=== PATIENT | male | born 1985 | race Caucasian/White ===

== ENCOUNTER 2016-07-14 18:56 | Emergency (ER) | payer OTHER ==
[2016-07-14 19:09] VITALS: BP 156/88; PULSE 90; RESP 16; TEMP 98
[2016-07-14] MEDS ORDERED: levETIRAcetam 500 MG TAB PO STA ×3 (19:17→19:33)
--- NOTE | 2016-07-14 19:29 | ED ---
General Adult HPI - General Chief complaint: Recheck/Abnormal Lab/Rx Stated complaint: Med refill Time Seen by Provider: 07/14/16 19:09 Source: patient, RN notes reviewed Mode of arrival: ambulatory Limitations: no limitations - History of Present Illness Initial comments: 31-year-old male presents to the ER with concerns of running out of his seizure medication. He states that he did try to go to the pharmacy and has had some extenuating circumstances not been able to refill the prescription on time. He states that he will be out of his medication for his night dose today and his daytime dose tomorrow as he does have to go to work and will be able to get to the pharmacy until after work. Patient is requesting medication to prevent seizure issue. Patient states he has been on Keppra for years and his last seizure was 9 years ago. He states that he is not symptomatic at this time and has no constitutional symptoms including fever, chills, blurry vision, headache , recent she seizure, abdominal pain, diarrhea. - Related Data Home Medications Medication Instructions Recorded Confirmed levETIRAcetam [Keppra] 500 mg PO BID 10/31/15 10/31/15 Allergies Allergy/AdvReac Type Severity Reaction Status Date / Time No Known Allergies Allergy Verified 07/14/16 19:05 Review of Systems ROS Statement: Those systems with pertinent positive or pertinent negative responses have been documented in the HPI. ROS Other: All systems not noted in ROS Statement are negative. Past Medical History Past Medical History: Seizure Disorder Additional Past Medical History / Comment(s): DVT, PE History of Any Multi-Drug Resistant Organisms: None Reported Past Surgical History: No Surgical Hx Reported Past Psychological History: No Psychological Hx Reported Smoking Status: Current some day smoker Past Alcohol Use History: Occasional Past Drug Use History: None Reported General Exam Limitations: no limitations General appearance: alert, in no apparent distress Head exam: Present: atraumatic, normocephalic Eye exam: Present: normal appearance, PERRL, EOMI Pupils: Present: normal accommodation Neck exam: Present: normal inspection Respiratory exam: Present: normal lung sounds bilaterally Cardiovascular Exam: Present: regular rate, normal rhythm Neurological exam: Present: alert, oriented X3, CN II-XII intact, normal gait Psychiatric exam: Present: normal affect, normal mood Course Vital Signs 07/14/16 19:06 Temperature 98 F Pulse Rate 90 Respiratory 16 Rate Blood Pressure 156/88 O2 Sat by Pulse 98 Oximetry Medical Decision Making - Medical Decision Making 31-year-old male presented to the ER after running out of his seizure medication. Counseled the patient on timely refills and he was receptive to this. He states that this will not be calm a recurrent problem. 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 500 mg were dispensed in the ER and an additional pill for his dose in the morning. He was offered a full prescription that he could fill at a pharmacy that was still open however he said he has not had good experiences with the pharmacy that is currently open. Patient was asymptomatic and his last seizure was 9 years ago. Patient was thankful for the help with his medication and prevention of seizure. To return to the ER with any new symptoms or concerns. Disposition Clinical Impression: Seizure disorder Disposition: HOME SELF-CARE Condition: Good Instructions: Normal Exam (ED) Additional Instructions: Return to the ER with any new or concerning symptoms. Encourage follow-up with primary care Referrals: Esteban Huang DO [Primary Care Provider] - 1-2 days Time of Disposition: 19:29
== END 2016-07-14 19:36 | disposition home or self-care (01) ==
LOC: EC 18:56
DX: G40.909 Epilepsy, unspecified, not intractable, without status epilepticus (principal); Z76.0 Encounter for issue of repeat prescription; F17.200 Nicotine dependence, unspecified, uncomplicated; Z79.899 Other long term (current) drug therapy
CPT/HCPCS: 99281

== ENCOUNTER 2019-01-19 18:21 | Observation (INO) | payer BC ==
[2019-01-19] MEDS ORDERED: SODIUM CHLORIDE 0.9% 1,000 ML IV STA (18:36)
[2019-01-19] MEDS ORDERED: MORPHINE SULFATE 4 MG/ML SYRINGE IV STA (18:36)
[2019-01-19 18:51] LABS: Basophils # (A) 0.4 k/uL (0-0.2); Basophils % (A) 2 %; Eosinophils # (A) 0.3 k/uL (0-0.7); Eosinophils % (A) 1 %; HCT 47.7 % (39.0-53.0); Lymphocytes # (A) 1.2 k/uL (1.0-4.8); Lymphocytes % (A) 6 %; MCH 31.3 pg (25.0-35.0); MCHC 33.6 g/dL (31.0-37.0); MCV 93.3 fL (80.0-100.0); Mean Platelet Volume 7.6; Monocytes % (A) 5 %; Neutrophils # (A) 17.7 k/uL (1.3-7.7); Neutrophils % (A) 85 %; Platelet Count 214 k/uL (150-450); RBC 5.11 m/uL (4.30-5.90); WBC 20.7 k/uL (3.8-10.6)
[2019-01-19 18:54] LABS: Appearance,Urine Clear (Clear); Bilirubin,Urine Negative (Negative); Blood,Urine Negative (Negative); Color,Urine Light Yellow; Glucose,Urine (UA) Negative (Negative); Ketones,Urine 1+ (Negative); Leukocyte Esterase,Urine Negative (Negative); Nitrite,Urine Negative (Negative); Protein,Urine Negative (Negative); Specific Gravity,Urine 1.005 (1.001-1.035); Urobilinogen,Urine <2.0 mg/dL (<2.0)
[2019-01-19] MEDS ORDERED: PIPERACILLIN-TAZOBACTAM 3.375 GM in SODIUM CHLORIDE 0.9% 100 ML IVPB STA (18:59)
[2019-01-19 19:07] LABS: ALT 47 U/L (21-72); AST 29 U/L (17-59); African American GFR (CKD) >90 (>60 ml/min/1.73 sqM); Albumin 4.6 g/dL (3.5-5.0); Alkaline Phosphatase 67 U/L (38-126); Anion Gap 9 mmol/L; Blood Urea Nitrogen 10 mg/dL (9-20); Calcium 9.8 mg/dL (8.4-10.2); Carbon Dioxide 30 mmol/L (22-30); Chloride 101 mmol/L (98-107); Glucose 112 mg/dL (74-99); Non-African American GFR(CKD) >90 (>60 ml/min/1.73 sqM); Potassium 4.1 mmol/L (3.5-5.1); Sodium 140 mmol/L (137-145); Total Bilirubin 0.9 mg/dL (0.2-1.3); Total Protein 7.7 g/dL (6.3-8.2)
--- NOTE | 2019-01-19 19:52 | ED ---
General Adult HPI - General Source: patient, RN notes reviewed, old records reviewed Mode of arrival: ambulatory Limitations: no limitations <Stephen Oliva - Last Filed: 01/20/19 17:59> <Dorcas Castro - Last Filed: 01/21/19 01:03> - General Chief complaint: Abdominal Pain Stated complaint: Abd pain Time Seen by Provider: 01/19/19 18:27 - History of Present Illness Initial comments: 34-year-old male patient passed no history for provoked PE following an ankle fracture number of years back presents to ED chief complaint of right lower quadrant abdominal pain for 2 days. Patient is not currently on any oral anticoagulation, completed 6 months of Coumadin. Patient reports that the abdominal pain started yesterday. Migrated down to his right lower quadrant. Patient reports nausea without emesis. Patient denies any previous abdominal surgeries. Denies any pain any other complaints. Denies other complaints. Systemic: Pt denies fatigue, fever/chills, rash. Pt denies weakness, night sweats, weight loss. Neuro: Pt denies headache, visual disturbances, syncope or pre-syncope. HEENT: Pt denies ocular discharge or irritation, otalgia, rhinorrhea, pharyngitis or notable lymphadenopathy. Cardiopulmonary: Pt denies chest pain, SOB, heart palpitations, dyspnea on exertion. Abdominal/GI: Pt denies /v/d. : Pt denies dysuria, burning w/ urination, frequency/urgency. Denies new onset urinary or bowel incontinence. MSK: Pt denies myalgia, loss of strength or function in extremities. Neuro: Pt denies new onset weakness, paresthesias. (Stephen Oliva) - Related Data Home Medications Medication Instructions Recorded Confirmed levETIRAcetam [Keppra] 500 mg PO BID 10/31/15 01/19/19 Allergies Allergy/AdvReac Type Severity Reaction Status Date / Time No Known Allergies Allergy Verified 01/19/19 20:05 Review of Systems ROS Other: All systems not noted in ROS Statement are negative. <Stephen Oliva - Last Filed: 01/20/19 17:59> ROS Other: All systems not noted in ROS Statement are negative. <Dorcas Castro - Last Filed: 01/21/19 01:03> ROS Statement: Those systems with pertinent positive or pertinent negative responses have been documented in the HPI. Past Medical History Past Medical History: Seizure Disorder Additional Past Medical History / Comment(s): DVT, PE History of Any Multi-Drug Resistant Organisms: None Reported Past Surgical History: No Surgical Hx Reported Past Psychological History: No Psychological Hx Reported Smoking Status: Former smoker Past Alcohol Use History: Rare Past Drug Use History: None Reported <Stephen Oliva - Last Filed: 01/20/19 17:59> - Past Family History Father Family Medical History: Coronary Artery Disease (CAD), Diabetes Mellitus Mother Additional Family Medical History / Comment(s): hypothyroid <Drocas Castro - Last Filed: 01/21/19 01:03> General Exam Limitations: no limitations <Stephen Oliva - Last Filed: 01/20/19 17:59> - General Exam Comments Initial Comments: Constitutional: NAD, AOX3, Pt has pleasant affect. HEENT: NC/AT, trachea midline, neck supple, no lymphadenopathy. Posterior pharynx non erythematous, without exudates. External ears appear normal, without discharge. Mucous membranes moist. Eyes PERRLA, EOM intact. There is no scleral icterus. No pallor noted. Cardiopulmonary: RRR, no murmurs, rubs or gallops, no JVD noted. Lungs CTAB in anterior and posterior villeda. No peripheral edema. Abdominal exam: Abdomen soft and non-distended. Abdomen tender to palpation right lower quadrant region. Guarding without rigidity. No other areas of abdominal tenderness.. Bowel sounds active in LLQ. No hepatosplenomegaly. No ecchymosis Neuro: CN II-XII grossly intact. No nuchal rigidity. No raccon eyes, no webb s ign, no hemotympanum. No cervical spinal tenderness. MSK: No posterior calf tenderness bilaterally, homans sign negative bilaterally. Posterior tibialis and radial pulse +2 bilaterally. Sensation intact in upper and lower extremities. Full active ROM in upper and lower extremities, 5/5 stregnth. (Stephen Oliva) Course Vital Signs 01/19/19 01/19/19 01/19/19 18:23 20:25 21:00 Temperature 98.1 F 102 F H Pulse Rate 97 86 87 Respiratory 18 18 18 Rate Blood Pressure 128/79 107/60 111/65 O2 Sat by Pulse 100 99 99 Oximetry Medical Decision Making - Lab Data Result diagrams: 01/19/19 18:43 01/19/19 18:43 <Stephen Oliva - Last Filed: 01/20/19 17:59> - Lab Data Result diagrams: 01/20/19 08:44 01/20/19 08:44 <Dorcas Castro - Last Filed: 01/21/19 01:03> - Medical Decision Making 34-year-old male patient presents to ED for chief complaint of right lower quadrant abdominal pain. Patient will signs are stable, afebrile. Physical exam displayed a lower quadrant pain with guarding. Abdomen investigations revealed a leukocytosis of 20. She has 1.0. Patient was initiated on Zosyn. Patient signed out to attending physician Dr. Castro pending CAT scan report. (Stephen Oliva) CAT scan read does demonstrate acute appendicitis. I discussed results with the patient. I called and discussed the case with Dr. Brooke who accepted admission. Patient is made nothing by mouth. Antiemetics, antibiotics and pain medications are ordered. Patient is awaiting a bed on the floor (Dorcas Castro) - Lab Data Lab Results 01/19/19 01/19/19 01/19/19 Range/Units 18:43 18:43 18:43 WBC 20.7 H (3.8-10.6) k/uL RBC 5.11 (4.30-5.90) m/uL Hgb 16.0 (13.0-17.5) gm/dL Hct 47.7 (39.0-53.0) % MCV 93.3 (80.0-100.0) fL MCH 31.3 (25.0-35.0) pg MCHC 33.6 (31.0-37.0) g/dL RDW 12.0 (11.5-15.5) % Plt Count 214 (150-450) k/uL Neutrophils % 85 % Lymphocytes % 6 % Monocytes % 5 % Eosinophils % 1 % Basophils % 2 % Neutrophils # 17.7 H (1.3-7.7) k/uL Lymphocytes # 1.2 (1.0-4.8) k/uL Monocytes # 1.0 (0-1.0) k/uL Eosinophils # 0.3 (0-0.7) k/uL Basophils # 0.4 H (0-0.2) k/uL Sodium 140 (137-145) mmol/L Potassium 4.1 (3.5-5.1) mmol/L Chloride 101 (98-107) mmol/L Carbon Dioxide 30 (22-30) mmol/L Anion Gap 9 mmol/L BUN 10 (9-20) mg/dL Creatinine 0.94 (0.66-1.25) mg/dL Est GFR (CKD-EPI)AfAm >90 (>60 ml/min/1.73 sqM) Est GFR (CKD-EPI)NonAf >90 (>60 ml/min/1.73 sqM) Glucose 112 H (74-99) mg/dL Plasma Lactic Acid Bipin 1.0 (0.7-2.0) mmol/L Calcium 9.8 (8.4-10.2) mg/dL Total Bilirubin 0.9 (0.2-1.3) mg/dL AST 29 (17-59) U/L ALT 47 (21-72) U/L Alkaline Phosphatase 67 (38-126) U/L Total Protein 7.7 (6.3-8.2) g/dL Albumin 4.6 (3.5-5.0) g/dL Lipase 36 (23-300) U/L Urine Color Urine Appearance (Clear) Urine pH (5.0-8.0) Ur Specific [place] (1.001-1.035) Urine Protein (Negative) Urine Glucose (UA) (Negative) Urine Ketones (Negative) Urine Blood (Negative) Urine Nitrite (Negative) Urine Bilirubin (Negative) Urine Urobilinogen (<2.0) mg/dL Ur Leukocyte Esterase (Negative) 01/19/19 Range/Units 18:43 WBC (3.8-10.6) k/uL RBC (4.30-5.90) m/uL Hgb (13.0-17.5) gm/dL Hct (39.0-53.0) % MCV (80.0-100.0) fL MCH (25.0-35.0) pg MCHC (31.0-37.0) g/dL RDW (11.5-15.5) % Plt Count (150-450) k/uL Neutrophils % % Lymphocytes % % Monocytes % % Eosinophils % % Basophils % % Neutrophils # (1.3-7.7) k/uL Lymphocytes # (1.0-4.8) k/uL Monocytes # (0-1.0) k/uL Eosinophils # (0-0.7) k/uL Basophils # (0-0.2) k/uL Sodium (137-145) mmol/L Potassium (3.5-5.1) mmol/L Chloride (98-107) mmol/L Carbon Dioxide (22-30) mmol/L Anion Gap mmol/L BUN (9-20) mg/dL Creatinine (0.66-1.25) mg/dL Est GFR (CKD-EPI)AfAm (>60 ml/min/1.73 sqM) Est GFR (CKD-EPI)NonAf (>60 ml/min/1.73 sqM) Glucose (74-99) mg/dL Plasma Lactic Acid Bipin (0.7-2.0) mmol/L Calcium (8.4-10.2) mg/dL Total Bilirubin (0.2-1.3) mg/dL AST (17-59) U/L ALT (21-72) U/L Alkaline Phosphatase (38-126) U/L Total Protein (6.3-8.2) g/dL Albumin (3.5-5.0) g/dL Lipase (23-300) U/L Urine Color Light Yellow Urine Appearance Clear (Clear) Urine pH 7.0 (5.0-8.0) Ur Specific [place] 1.005 (1.001-1.035) Urine Protein Negative (Negative) Urine Glucose (UA) Negative (Negative) Urine Ketones 1+ H (Negative) Urine Blood Negative (Negative) Urine Nitrite Negative (Negative) Urine Bilirubin Negative (Negative) Urine Urobilinogen <2.0 (<2.0) mg/dL Ur Leukocyte Esterase Negative (Negative) Disposition <Stephen Oliva - Last Filed: 01/20/19 17:59> Is patient prescribed a controlled substance at d/c from ED?: No Decision to Admit Reason: Admit from EC Decision Date: 01/19/19 Decision Time: 20:40 <Dorcas Castro - Last Filed: 01/21/19 01:03> Clinical Impression: Abdominal pain, Acute appendicitis Disposition: ADMITTED IP TO THIS [facility] Condition: Serious
--- NOTE | 2019-01-19 20:13 | CT ---
EXAMINATION TYPE: CT abdomen pelvis w con DATE OF EXAM: 01/19/2019 COMPARISON: None HISTORY: Right lower quadrant abdominal pain. CT DLP: 1055 mGycm Automated exposure control for dose reduction was used. TECHNIQUE: Helical acquisition of images was performed from the lung bases through the pelvis. CONTRAST: Performed without Oral Contrast and with IV Contrast, patient injected with 100ml mL of Iso yohana 300. FINDINGS: LUNG BASES: No significant abnormality is appreciated. LIVER/GB: No significant abnormality is appreciated. PANCREAS: No significant abnormality is seen. SPLEEN: No significant abnormality is seen. ADRENALS: No significant abnormality is seen. KIDNEYS: No significant abnormality is seen. PERITONEAL CAVITY: No pneumoperitoneum. No peritoneal fluid. RETROPERITONEAL ADENOPATHY: None visualized REPRODUCTIVE ORGANS: No significant abnormality is seen URINARY BLADDER: No significant abnormality is seen. PELVIC ADENOPATHY: None visualized. OSSEOUS STRUCTURES: No significant abnormality is seen. BOWEL: The appendix lies immediately anterior to the psoas, from the superior iliac crest level throu gh the sacral promontory level. The appendix is prominently distended to 12 mm and its margins are in distinct. The appendix contains a hyperechoic density distally, consistent with appendicolith. There is associated periappendiceal edematous reticulation. There are no focal fluid or gas collections. No other bowel findings. OTHER: No acute vascular findings. IMPRESSION: POSITIVE FOR NONCOMPLICATED APPENDICITIS.
[2019-01-19] MEDS ORDERED: ONDANSETRON 4 MG/2 ML VIAL IVP PRN ×2 (20:22→20:42)
[2019-01-19] MEDS: MORPHINE SULFATE 4 MG/ML SYRINGE IVP PRN (20:32)
[2019-01-19] MEDS: SODIUM CHLORIDE 0.9% 1,000 ML IV SCH (20:33)
[2019-01-19] MEDS ORDERED: IBUPROFEN 400 MG TAB PO PRN (20:42)
[2019-01-19] MEDS ORDERED: NALOXONE 0.4 MG/ML 1 ML VIAL IV PRN (20:42)
[2019-01-19] MEDS ORDERED: MORPHINE SULFATE 4 MG/ML SYRINGE IV PRN (20:42)
[2019-01-19] MEDS: levETIRAcetam 500 MG TAB PO SCH (21:43)
[2019-01-20] MEDS: PIPERACILLIN-TAZOBACTAM 3.375 GM in SODIUM CHLORIDE 0.9% 100 ML IVPB SCH ×4 (01:55→23:58)
[2019-01-20] MEDS: MORPHINE SULFATE 4 MG/ML SYRINGE IVP PRN ×2 (01:57→07:26)
[2019-01-20] MEDS: ACETAMINOPHEN TAB 325 MG TAB PO PRN ×2 (01:58→19:06)
[2019-01-20] MEDS: levETIRAcetam 500 MG TAB PO SCH ×2 (07:28→19:07)
[2019-01-20] MEDS: SODIUM CHLORIDE 0.9% 1,000 ML IV SCH ×2 (07:29→16:44)
[2019-01-20] MEDS: HEPARIN SODIUM,PORCINE 5,000 UNIT/ML 1 ML VIAL SQ SCH ×4 (07:29→23:58)
[2019-01-20] MEDS ORDERED: MORPHINE SULFATE 4 MG/ML SYRINGE IV PRN (08:22)
[2019-01-20] MEDS: PANTOPRAZOLE 40 MG/10 ML VIAL IVP SCH (08:22)
--- NOTE | 2019-01-20 08:27 | P.GSHP ---
History of Present Illness H&P Date: 01/20/19 Chief Complaint: abdominal pain CHIEF COMPLAINT: Abdominal pain HISTORY OF PRESENT ILLNESS: 34-year-old male who presented to the emergency room with chief complaint of abdominal pain. Patient reports right lower quadrant abdominal pain that woke him up from a sleep two nights ago. He reports nausea and vomiting at home. No emesis since coming to the hospital. Patient reports fever as well. He appears uncomfortable this morning. He is receiving morphine for pain which he reports is helping his pain but not lasting very long. He reports intolerance to Dilaudid in the past. PAST MEDICAL HISTORY: See list. PAST SURGICAL HISTORY: See list. SOCIAL HISTORY: No illicit drug use. REVIEW OF SYSTEMS: CONSTITUTIONAL: Reports fever. HEENT: Denies blurred vision, vision changes, or eye pain. Denies hemoptysis CARDIOVASCULAR: Denies chest pain or pressure. RESPIRATORY: No shortness of breath. GASTROINTESTINAL: Refer to HPI for pertinent findings HEMATOLOGIC: Denies bleeding disorders. GENITOURINARY: Denies any blood in urine. SKIN: Denies pruitis. Denies rash. PHYSICAL EXAM: VITAL SIGNS: Reviewed. GENERAL: Well-developed in no acute distress, but appears uncomfortable and in pain. HEENT: No sclera icterus. Extraocular movements grossly intact. Moist buccal mucosa. Head is atraumatic, normocephalic. ABDOMEN: Soft. Nondistended. Tenderness with palpation to right lower quadrant. NEUROLOGIC: Alert and oriented. Cranial nerves II through XII grossly intact. LABORATORY DATA: WBC 20.7 hemoglobin 16.0. Platelet count 214. IMAGING: CT abdomen and pelvis: Positive for noncomplicated appendicitis ASSESSMENT: 1. Abdominal pain 2. Acute appendicitis 3. Sepsis, present on admission, patient presented with fever and leukocytosis PLAN: 1. Nothing by mouth. Continue IV fluids 2. Monitor WBC. Continue IV Zosyn 3. Pain control. Patient unable to tolerate Dilaudid. Will increase dose of Morphine to every 2 hours PRN. 4. Patient to undergo laparoscopic appendectomy today with Dr. Brooke Nurse practitioner note has been reviewed by physician. Signing provider agrees with the documented findings, assessment, and plan of care. Past Medical History Past Medical History: Seizure Disorder Additional Past Medical History / Comment(s): DVT, PE, last seizure 8 years ago History of Any Multi-Drug Resistant Organisms: None Reported Past Surgical History: No Surgical Hx Reported Past Psychological History: No Psychological Hx Reported Smoking Status: Former smoker Past Alcohol Use History: Rare Past Drug Use History: None Reported - Past Family History Father Family Medical History: Coronary Artery Disease (CAD), Diabetes Mellitus Mother Additional Family Medical History / Comment(s): hypothyroid Medications and Allergies Home Medications Medication Instructions Recorded Confirmed Type levETIRAcetam [Keppra] 500 mg PO BID 10/31/15 01/19/19 History Allergies Allergy/AdvReac Type Severity Reaction Status Date / Time No Known Allergies Allergy Verified 01/19/19 20:05 Surgical - Exam Vital Signs Temp Pulse Resp BP Pulse Ox 98.1 F 97 18 128/79 100 01/19/19 18:23 01/19/19 18:23 01/19/19 18:23 01/19/19 18:23 01/19/19 18:23 Results - Labs 01/19/19 18:43 01/19/19 18:43 Abnormal Lab Results - Last 24 Hours (Table) 01/19/19 01/19/19 01/19/19 Range/Units 18:43 18:43 18:43 WBC 20.7 H (3.8-10.6) k/uL Neutrophils # 17.7 H (1.3-7.7) k/uL Basophils # 0.4 H (0-0.2) k/uL Glucose 112 H (74-99) mg/dL Urine Ketones 1+ H (Negative) Diabetes panel 01/19/19 Range/Units 18:43 Sodium 140 (137-145) mmol/L Potassium 4.1 (3.5-5.1) mmol/L Chloride 101 (98-107) mmol/L Carbon Dioxide 30 (22-30) mmol/L BUN 10 (9-20) mg/dL Creatinine 0.94 (0.66-1.25) mg/dL Glucose 112 H (74-99) mg/dL Calcium 9.8 (8.4-10.2) mg/dL AST 29 (17-59) U/L ALT 47 (21-72) U/L Alkaline Phosphatase 67 (38-126) U/L Total Protein 7.7 (6.3-8.2) g/dL Albumin 4.6 (3.5-5.0) g/dL Calcium panel 01/19/19 Range/Units 18:43 Calcium 9.8 (8.4-10.2) mg/dL Albumin 4.6 (3.5-5.0) g/dL Pituitary panel 01/19/19 Range/Units 18:43 Sodium 140 (137-145) mmol/L Potassium 4.1 (3.5-5.1) mmol/L Chloride 101 (98-107) mmol/L Carbon Dioxide 30 (22-30) mmol/L BUN 10 (9-20) mg/dL Creatinine 0.94 (0.66-1.25) mg/dL Glucose 112 H (74-99) mg/dL Calcium 9.8 (8.4-10.2) mg/dL Adrenal panel 01/19/19 Range/Units 18:43 Sodium 140 (137-145) mmol/L Potassium 4.1 (3.5-5.1) mmol/L Chloride 101 (98-107) mmol/L Carbon Dioxide 30 (22-30) mmol/L BUN 10 (9-20) mg/dL Creatinine 0.94 (0.66-1.25) mg/dL Glucose 112 H (74-99) mg/dL Calcium 9.8 (8.4-10.2) mg/dL Total Bilirubin 0.9 (0.2-1.3) mg/dL AST 29 (17-59) U/L ALT 47 (21-72) U/L Alkaline Phosphatase 67 (38-126) U/L Total Protein 7.7 (6.3-8.2) g/dL Albumin 4.6 (3.5-5.0) g/dL
[2019-01-20] MEDS ORDERED: IV FLUID CONTINUATION 1,000 ML IV ONE (09:24)
[2019-01-20 09:53] LABS: Basophils # (A) 0.1 k/uL (0-0.2); Basophils % (A) 0 %; Eosinophils % (A) 0 %; HCT 44.4 % (39.0-53.0); HGB 14.7 gm/dL (13.0-17.5); Lymphocytes % (A) 5 %; MCH 31.1 pg (25.0-35.0); MCHC 33.1 g/dL (31.0-37.0); Mean Platelet Volume 7.4; Monocytes # (A) 0.8 k/uL (0-1.0); Monocytes % (A) 5 %; Neutrophils # (A) 15.7 k/uL (1.3-7.7); Neutrophils % (A) 89 %; Platelet Count 179 k/uL (150-450); RBC 4.72 m/uL (4.30-5.90); RDW 11.8 % (11.5-15.5); WBC 17.7 k/uL (3.8-10.6)
[2019-01-20] MEDS ORDERED: LACTATED RINGERS 1,000 ML IV ONE ×3 (09:54→11:48)
[2019-01-20] MEDS ORDERED: MIDAZOLAM 2 MG/2 ML VIAL IV ONE (10:19)
[2019-01-20 10:25] LABS: African American GFR (CKD) >90 (>60 ml/min/1.73 sqM); Anion Gap 11 mmol/L; Blood Urea Nitrogen 12 mg/dL (9-20); Calcium 8.9 mg/dL (8.4-10.2); Carbon Dioxide 25 mmol/L (22-30); Chloride 103 mmol/L (98-107); Glucose 92 mg/dL (74-99); Non-African American GFR(CKD) >90 (>60 ml/min/1.73 sqM); Sodium 139 mmol/L (137-145)
[2019-01-20] MEDS ORDERED: .MORPHINE SULFATE (INJ) 10 MG/ML SYRINGE ONE (11:02)
[2019-01-20] MEDS ORDERED: fentaNYL (PF) 50 MCG/ML 2 ML AMP ONE (11:02)
[2019-01-20] MEDS ORDERED: ALBUTEROL INHALER 60 PUFF/8 GM INHALER INHALATION ONE (11:02)
[2019-01-20] MEDS ORDERED: ROCURONIUM BROMIDE 10 MG/ML 10 ML VIAL IV ONE (11:02)
[2019-01-20] MEDS ORDERED: LIDOCAINE 1% INJ 10MG/ML (20 ML MDV) ONE (11:02)
[2019-01-20] MEDS ORDERED: MIDAZOLAM 2 MG/2 ML VIAL ONE (11:02)
[2019-01-20] MEDS ORDERED: PROPOFOL 10 MG/ML 20 ML VIAL IV ONE (11:02)
[2019-01-20] MEDS ORDERED: KETOROLAC 30 MG/ML 1 ML VIAL ONE (11:02)
[2019-01-20] MEDS ORDERED: GLYCOPYRROLATE 0.2 MG/ML 2 ML VIAL ONE (11:02)
[2019-01-20] MEDS ORDERED: NEOSTIGMINE 1 MG/ML 10 ML VIAL ONE (11:02)
[2019-01-20] MEDS ORDERED: BUPIVACAINE (PF) 0.25% 30 ML VIAL SQ ONE (11:26)
--- NOTE | 2019-01-20 11:57 | P.OP ---
Date of Procedure: 01/20/19 Preoperative Diagnosis: Acute appendicitis Postoperative Diagnosis: Acute appendicitis Procedure(s) Performed: Laparoscopic appendectomy Anesthesia: RAMIREZ Surgeon: Rohan Brooke Estimated Blood Loss (ml): 5 Pathology: other (Appendix) Condition: stable Disposition: PACU Description of Procedure: HarThe patient's placed on the operating table in the supine position. The patient received general anesthesia. The abdomen was prepped and draped in the usual sterile fashion. The skin was anesthetized 1% local Xylocaine at the trocar sites. Using an 11 blade the skin was incised at the umbilicus. The umbilicus was grasped with a Dubois clamp and then a Veress needle was placed into the peritoneal cavity. Position of the Veress needle was confirmed with positive drop test. After adequate insufflation a 5 mm trocar was placed into the peritoneal cavity. The abdomen was further insufflated. And then the laparoscope was placed in the peritoneal cavity. Next a 5 mm trocar was placed in the midline suprapubic position. And then a 10 mm trocar was placed in the midline epigastric position. The patient was rotated with the right side up and in Trendelenburg. The appendix was visualized. The appendix appeared to be inflamed. The appendix was grasped and then using the Harmonic scissors the mesoappendix was divided. A PDS Endoloop was then placed around the base of the appendix. And then the appendix was divided using Harmonic scissors. The appendix was placed into an Endo Catch and brought out through the 10 mm trocar site. The abdomen was irrigated. There is no bleeding seen. The trochars withdrawn. The skin was closed interrupted 3-0 Monocryl suture. Dermabond dressing was applied. Patient was sent to recovery room in stable condition.
--- NOTE | 2019-01-20 13:01 | P.PN ---
Progress Note - Text Unable to assess as the patient at this time as patient is in OR
--- NOTE | 2019-01-20 14:39 | P.CONS ---
History of Present Illness - Reason for Consult Sepsis, and antibiotic management - History of Present Illness 34-year-old male came in with complaints of right lower quadrant abdominal pain severe pain sharp episodes with nausea vomiting patient did have fever as well patient was started on Zosyn CAT scan did show appendicitis. Patient underwent the appendectomy with better pain control. Review of Systems REVIEW OF SYSTEMS: CONSTITUTIONAL: No fever, no malaise, no fatigue. HEENT: No recent visual problems or hearing problems. Denied any sore throat. CARDIOVASCULAR: No chest pain, orthopnea, PND, no palpitations, no syncope. PULMONARY: No shortness of breath, no cough, no hemoptysis. GASTROINTESTINAL: As mentioned in HPI NEUROLOGICAL: No headaches, no weakness, no numbness. HEMATOLOGICAL: Denies any bleeding or petechiae. GENITOURINARY: Denies any burning micturition, frequency, or urgency. MUSCULOSKELETAL/RHEUMATOLOGICAL: Denies any joint pain, swelling, or any muscle pain. ENDOCRINE: Denies any polyuria or polydipsia. The rest of the 14-point review of systems is negative. Past Medical History Past Medical History: Seizure Disorder Additional Past Medical History / Comment(s): DVT, PE, last seizure 8 years ago History of Any Multi-Drug Resistant Organisms: None Reported Past Surgical History: No Surgical Hx Reported Past Psychological History: No Psychological Hx Reported Smoking Status: Former smoker Past Alcohol Use History: Rare Past Drug Use History: None Reported - Past Family History Father Family Medical History: Coronary Artery Disease (CAD), Diabetes Mellitus Mother Additional Family Medical History / Comment(s): hypothyroid Medications and Allergies Home Medications Medication Instructions Recorded Confirmed Type levETIRAcetam [Keppra] 500 mg PO BID 10/31/15 01/19/19 History Allergies Allergy/AdvReac Type Severity Reaction Status Date / Time No Known Allergies Allergy Verified 01/19/19 20:05 Physical Exam Vitals: Vital Signs Temp Pulse Pulse Pulse Resp BP BP 01/20/19 13:15 99.1 F 83 16 110/66 01/20/19 12:30 90 18 116/57 01/20/19 12:16 88 18 122/59 01/20/19 12:01 88 18 121/58 01/20/19 11:55 99.8 F H 88 18 118/59 01/20/19 10:41 89 16 01/20/19 10:20 92 16 01/20/19 09:35 100.4 F H 96 16 123/58 01/20/19 08:00 16 01/20/19 05:32 98.9 F 84 20 116/67 01/20/19 01:58 99.1 F 01/19/19 21:36 99.1 F 78 20 130/64 01/19/19 21:00 87 18 111/65 01/19/19 20:25 102 F H 86 18 107/60 01/19/19 18:23 98.1 F 97 18 128/79 Pulse Ox 01/20/19 13:15 95 01/20/19 12:30 98 01/20/19 12:16 98 01/20/19 12:01 98 01/20/19 11:55 97 01/20/19 10:41 98 01/20/19 10:20 95 01/20/19 09:35 93 L 01/20/19 08:00 01/20/19 05:32 96 01/20/19 01:58 01/19/19 21:36 97 01/19/19 21:00 99 01/19/19 20:25 99 01/19/19 18:23 100 Intake and Output 01/19/19 01/20/19 01/20/19 22:59 06:59 14:59 Intake Total 2100 Output Total 105 Balance 1994 Intake: IV 2100 Output: Urine 100 Estimated Blood Loss 5 Other: Voiding Method Toilet Toilet # Voids 1 0 Weight 95.254 kg PHYSICAL EXAMINATION: GENERAL: The patient is alert and oriented x3, not in any acute distress. Well developed, well nourished. HEENT: Pupils are round and equally reacting to light. EOMI. No scleral icterus. No conjunctival pallor. Normocephalic, atraumatic. No pharyngeal erythema. No thyromegaly. CARDIOVASCULAR: S1 and S2 present. No murmurs, rubs, or gallops. PULMONARY: Chest is clear to auscultation, no wheezing or crackles. ABDOMEN: Examined the patient postoperatively surgical site is areas appear to be clean sluggish bowel sounds MUSCULOSKELETAL: No joint swelling or deformity. EXTREMITIES: No cyanosis, clubbing, or pedal edema. NEUROLOGICAL: Gross neurological examination did not reveal any focal deficits. SKIN: No rashes. Results CBC & Chem 7: 01/20/19 08:44 01/20/19 08:44 Labs: Abnormal Lab Results - Last 24 Hours (Table) 01/19/19 01/19/19 01/19/19 Range/Units 18:43 18:43 18:43 WBC 20.7 H (3.8-10.6) k/uL Neutrophils # 17.7 H (1.3-7.7) k/uL Basophils # 0.4 H (0-0.2) k/uL Glucose 112 H (74-99) mg/dL Urine Ketones 1+ H (Negative) 01/20/19 Range/Units 08:44 WBC 17.7 H (3.8-10.6) k/uL Neutrophils # 15.7 H (1.3-7.7) k/uL Basophils # (0-0.2) k/uL Glucose (74-99) mg/dL Urine Ketones (Negative) Assessment and Plan Plan: -Acute appendicitis status post surgery, patient is on antibiotics Zosyn which is appropriate and can be continued. Patient will be started on Toradol to avoid excess opiate analgesia -Leukocytosis due to acute appendicitis -Seizure disorder for which patient on Keppra was resumed -DVT prophylaxis per primary service
[2019-01-20] MEDS: KETOROLAC 30 MG/ML 1 ML VIAL IVP PRN (19:07)
[2019-01-21] MEDS: SODIUM CHLORIDE 0.9% 1,000 ML IV SCH ×3 (03:33→21:15)
[2019-01-21] MEDS: KETOROLAC 30 MG/ML 1 ML VIAL IVP PRN (05:30)
[2019-01-21] MEDS: HEPARIN SODIUM,PORCINE 5,000 UNIT/ML 1 ML VIAL SQ SCH ×2 (07:56→15:49)
[2019-01-21] MEDS: PIPERACILLIN-TAZOBACTAM 3.375 GM in SODIUM CHLORIDE 0.9% 100 ML IVPB SCH ×2 (07:56→15:49)
[2019-01-21] MEDS: levETIRAcetam 500 MG TAB PO SCH ×2 (07:56→21:15)
[2019-01-21] MEDS: PANTOPRAZOLE 40 MG/10 ML VIAL IVP SCH (07:56)
[2019-01-21 08:40] LABS: Basophils # (A) 0.1 k/uL (0-0.2); Basophils % (A) 0 %; Eosinophils % (A) 0 %; HCT 38.7 % (39.0-53.0); HGB 13.1 gm/dL (13.0-17.5); Lymphocytes # (A) 1.5 k/uL (1.0-4.8); Lymphocytes % (A) 9 %; MCH 32.3 pg (25.0-35.0); MCHC 33.9 g/dL (31.0-37.0); MCV 95.2 fL (80.0-100.0); Mean Platelet Volume 7.3; Monocytes # (A) 0.6 k/uL (0-1.0); Monocytes % (A) 4 %; Neutrophils # (A) 14.2 k/uL (1.3-7.7); Neutrophils % (A) 86 %; Platelet Count 152 k/uL (150-450); RBC 4.07 m/uL (4.30-5.90); RDW 11.9 % (11.5-15.5); WBC 16.6 k/uL (3.8-10.6)
[2019-01-21] MEDS: HYDROcodone/APAP 5-325MG 1 EACH TAB PO PRN ×2 (12:42→21:14)
--- NOTE | 2019-01-21 13:02 | P.PN ---
Subjective Progress Note Date: 01/21/19 CHIEF COMPLAINT: Abdominal pain HISTORY OF PRESENT ILLNESS: 34-year-old male who is status post laparoscopic appendectomy. Postop day #1. Patient examined at the bedside with Dr. Brooke. Patient reports abdominal discomfort. He is tolerating diet. Denies nausea or vomiting. WBC 16.6. PHYSICAL EXAM: VITAL SIGNS: Reviewed. GENERAL: Well-developed in no acute distress. HEENT: No sclera icterus. Extraocular movements grossly intact. Moist buccal mucosa. Head is atraumatic, normocephalic. ABDOMEN: Soft. Nondistended. Appropriate surgical tenderness. Laparoscopic surgical sites clean dry and intact. NEUROLOGIC: Alert and oriented. Cranial nerves II through XII grossly intact. ASSESSMENT: 1. Abdominal pain 2. Acute appendicitis 3. Sepsis, present on admission, patient presented with fever and leukocytosis PLAN: 1. Continue regular diet 2. Monitor WBC. Repeat in a.m. Continue IV Zosyn 3. Pain control. Continue Toradol and [place] PRN. 4. Anticipate discharge home tomorrow. Nurse practitioner note has been reviewed by physician. Signing provider agrees with the documented findings, assessment, and plan of care. Objective - Vital Signs Vital signs: Vital Signs Temp 99.6 F 01/21/19 05:29 Pulse 78 01/21/19 05:29 Resp 20 01/21/19 08:00 BP 92/55 01/21/19 05:29 Pulse Ox 95 01/21/19 05:29 Intake & Output 01/20/19 01/21/19 01/21/19 18:59 06:59 18:59 Intake Total 2100 Output Total 105 Balance 1994 Intake: IV 2100 Output: Urine 100 Estimated Blood Loss 5 Other: Voiding Method Toilet Toilet Toilet # Voids 2 0 1 - Labs CBC & Chem 7: 01/21/19 07:44 01/20/19 08:44 Labs: Abnormal Lab Results - Last 24 Hours (Table) 01/21/19 Range/Units 07:44 WBC 16.6 H (3.8-10.6) k/uL RBC 4.07 L (4.30-5.90) m/uL Hct 38.7 L (39.0-53.0) % Neutrophils # 14.2 H (1.3-7.7) k/uL Microbiology - Last 24 Hours (Table) 01/19/19 19:39 Blood Culture - Preliminary Blood No Growth after 24 hours
[2019-01-21] MEDS ORDERED: POLYETHYLENE GLYCOL 3350 17 GM POWD.PACK PO PRN (14:35)
--- NOTE | 2019-01-21 14:38 | P.PN ---
Subjective 34-year-old male was admitted for acute appendicitis status post appendectomy and patient is on IV antibiotics and patient is still complaining of severe pain in the abdomen and tenderness in the abdomen. Patient does have bowel sounds still versus is constipated patient will be started on senna and MiraLAX patient is on Toradol and oral [place]. Constitutional: Denied any fatigue denied any fever. Cardio vascular: denied any chest pain, palpitations Gastrointestinal denied any nausea vomiting Pulmonary: Denied any shortness of breath cough Neurologic denied any new focal deficits All inpatient medications were reviewed and appropriate changes in these medications as dictated in the interval history and assessment and plan. Objective - Vital Signs Vital signs: Vital Signs Temp 99.0 F 01/21/19 12:25 Pulse 87 01/21/19 12:25 Resp 20 01/21/19 12:25 BP 112/71 01/21/19 12:25 Pulse Ox 98 01/21/19 12:25 Intake & Output 01/20/19 01/21/19 01/21/19 18:59 06:59 18:59 Intake Total 2100 Output Total 105 Balance 1994 Intake: IV 2100 Output: Urine 100 Estimated Blood Loss 5 Other: Voiding Method Toilet Toilet Toilet # Voids 2 0 2 - Exam PHYSICAL EXAMINATION: GENERAL: The patient is alert and oriented x3, not in any acute distress. Well developed, well nourished. HEENT: Pupils are round and equally reacting to light. EOMI. No scleral icterus. No conjunctival pallor. Normocephalic, atraumatic. No pharyngeal erythema. No thyromegaly. CARDIOVASCULAR: S1 and S2 present. No murmurs, rubs, or gallops. PULMONARY: Chest is clear to auscultation, no wheezing or crackles. ABDOMEN: Examined the patient postoperatively surgical site is areas appear to be clean and does have bowel sounds MUSCULOSKELETAL: No joint swelling or deformity. EXTREMITIES: No cyanosis, clubbing, or pedal edema. NEUROLOGICAL: Gross neurological examination did not reveal any focal deficits. SKIN: No rashes. - Labs CBC & Chem 7: 01/21/19 07:44 01/20/19 08:44 Labs: Abnormal Lab Results - Last 24 Hours (Table) 01/21/19 Range/Units 07:44 WBC 16.6 H (3.8-10.6) k/uL RBC 4.07 L (4.30-5.90) m/uL Hct 38.7 L (39.0-53.0) % Neutrophils # 14.2 H (1.3-7.7) k/uL Microbiology - Last 24 Hours (Table) 01/19/19 19:39 Blood Culture - Preliminary Blood No Growth after 24 hours Assessment and Plan Plan: -Acute appendicitis status post surgery, patient is on antibiotics Zosyn which is appropriate and can be continued. Patient is presently on Toradol note: Was started on senna and MiraLAX for constipation -Leukocytosis due to acute appendicitis -Seizure disorder for which patient on Keppra -DVT prophylaxis per primary service
[2019-01-21] MEDS: SENNOSIDES-DOCUSATE SODIUM 1 EACH TAB PO SCH ×2 (15:49→21:14)
[2019-01-21 23:06] VITALS: RESP 18
[2019-01-22] MEDS: PIPERACILLIN-TAZOBACTAM 3.375 GM in SODIUM CHLORIDE 0.9% 100 ML IVPB SCH ×2 (00:04→08:01)
[2019-01-22] MEDS: HEPARIN SODIUM,PORCINE 5,000 UNIT/ML 1 ML VIAL SQ SCH ×2 (00:05→08:02)
[2019-01-22 06:50] LABS: Basophils % (A) 0 %; Eosinophils % (A) 0 %; HCT 35.4 % (39.0-53.0); HGB 12.2 gm/dL (13.0-17.5); Lymphocytes # (A) 1.2 k/uL (1.0-4.8); Lymphocytes % (A) 10 %; MCH 32.3 pg (25.0-35.0); MCHC 34.4 g/dL (31.0-37.0); MCV 93.7 fL (80.0-100.0); Mean Platelet Volume 7.5; Monocytes # (A) 0.6 k/uL (0-1.0); Monocytes % (A) 5 %; Neutrophils # (A) 9.9 k/uL (1.3-7.7); Neutrophils % (A) 83 %; Platelet Count 163 k/uL (150-450); RBC 3.78 m/uL (4.30-5.90); RDW 11.7 % (11.5-15.5); WBC 11.9 k/uL (3.8-10.6)
[2019-01-22] MEDS ORDERED: PANTOPRAZOLE 40 MG TABLET PO SCH (07:30)
[2019-01-22] MEDS: SENNOSIDES-DOCUSATE SODIUM 1 EACH TAB PO SCH (08:02)
[2019-01-22] MEDS: levETIRAcetam 500 MG TAB PO SCH (08:02)
[2019-01-22] MEDS: HYDROcodone/APAP 5-325MG 1 EACH TAB PO PRN (09:39)
[2019-01-22] MEDS: SODIUM CHLORIDE 0.9% 1,000 ML IV SCH (09:40)
[2019-01-22 12:35] VITALS: BP 114/68; PULSE 77; TEMP 99.2
--- NOTE | 2019-01-22 12:57 | P.DS ---
Providers Date of admission: 01/21/19 15:28 Expected date of discharge: 01/22/19 Attending physician: Rohan Brooke Consults: 01/20/19 06:52 Consult Physician Routine Consulting Provider: Angie Quesada Consult Reason/Comments: medical management Do you want consulting provider notified?: Yes Primary care physician: [facility] Course: 34-year-old male who presented to the emergency room with abdominal pain. Patient was found to have acute appendicitis. He underwent laparoscopic appendectomy. Patient is doing well postoperatively without any immediate complications. Pain is controlled on oral medications. Vital signs stable. He is tolerating diet. Denies nausea or vomiting. He stable for discharge home today. Please see EMR for further hospital course details. Discharge Diagnosis: 1. Abdominal pain 2. Acute appendicitis 3. Sepsis, present on admission, patient presented with fever and leukocytosis Nurse practitioner note has been reviewed by physician. Signing provider agrees with the documented findings, assessment, and plan of care. Patient Condition at Discharge: Stable Plan - Discharge Summary Discharge Rx Participant: No New Discharge Prescriptions: New Hydrocodone/Acetaminophen [[place] 5-325] 1 tab PO Q4HR PRN 3 Days #18 tab PRN Reason: Pain No Action levETIRAcetam [Keppra] 500 mg PO BID Discharge Medication List levETIRAcetam [Keppra] 500 mg PO BID 10/31/15 [History] Hydrocodone/Acetaminophen [[place] 5-325] 1 tab PO Q4HR PRN 3 Days #18 tab 01/22/19 [Rx] Follow up Appointment(s)/Referral(s): Esteban Huang DO [Primary Care Provider] - 1-2 days Rohan Brooke MD [STAFF PHYSICIAN] - 01/28/19 2:45 pm Patient Instructions/Handouts: Laparoscopic Appendectomy (DC) Activity/Diet/Wound Care/Special Instructions: No driving while taking [place] No lifting over 10 pounds You may shower. No soaking or tub baths Very light activity until you are reevaluated at your follow up appointment with your surgeon
== END 2019-01-22 14:21 | disposition home or self-care (01) ==
LOC: EC 18:21 → UNDOADMOB 20:42 → 4MS4W 20:42 → OBSVTOIN 01-21 15:28 → INTOOBSV 01-21 15:28 → UNDODISIN 01-22 14:21
PROVIDERS: ADMIT Surgery; ATTEND Surgery
DX: A41.9 Sepsis, unspecified organism (principal); K35.80 Unspecified acute appendicitis; G40.909 Epilepsy, unspecified, not intractable, without status epilepticus; Z79.899 Other long term (current) drug therapy; Z87.891 Personal history of nicotine dependence; Z82.49 Family history of ischemic heart disease and other diseases of the circulatory system; Z83.3 Family history of diabetes mellitus; Z83.49 Family history of other endocrine, nutritional and metabolic diseases; Z86.718 Personal history of other venous thrombosis and embolism; Z86.711 Personal history of pulmonary embolism
CPT/HCPCS: 96376; 96361; 96365; 96366; 96375; 99285; 36415; 88304; 80053; 80048; 83605; 83690; 85025 ×4; 81003; 87040; 74177; 44970; G0378 ×4; J2543 ×4; J2250; J2270 ×4; J1644 ×3; J2710; J2001; J3010; J1885 ×2; J2704; C9113 ×2; Q9967

== ENCOUNTER 2019-12-09 21:06 | Inpatient (IN) | payer BC ==
[2019-12-09] MEDS ORDERED: NALOXONE 0.4 MG/ML 1 ML VIAL IVP STA ×3 (21:08→21:22)
[2019-12-09 21:16] LABS: Glucose,Whole Blood 95 mg/dL (75-99)
[2019-12-09] MEDS ORDERED: SODIUM CHLORIDE 0.9% 1,000 ML IV STA ×2 (21:19)
--- NOTE | 2019-12-09 21:21 | ED ---
Trauma HPI - General Chief Complaint: Psychiatric Symptoms Stated Complaint: Unresponsive Time Seen by Provider: 12/09/19 21:18 Source: EMS, RN notes reviewed, old records reviewed Mode of arrival: EMS Limitations: physical limitation - History of Present Illness Initial Comments: This is a 34-year-old male DF for evaluation patient coming in for multif actorial suicide attempt alcohol intoxication opiate abuse and opiate use as well as a hanging attempt. Patient attempted hanging just prior to arrival. Was found by family called EMS EMS brings patient in and upon arrival to the ER patient became unresponsive and stopped breathing. Patient was unresponsive on arrival to emergency department history obtained by EMS MD Complaint: other (Suicide attempt by hanging) -: unknown Loss of Consciousness: yes (After his suicide attempt of hanging secondary to opiate use) Location: head, face Severity scale (1-10): 10 Consistency: constant Context: other (Patient attempted hanging himself by suicide) Associated Symptoms: other (Unresponsive) - Related Data Home Medications Medication Instructions Recorded Confirmed levETIRAcetam [Keppra] 500 mg PO BID 10/31/15 12/09/19 Allergies Allergy/AdvReac Type Severity Reaction Status Date / Time No Known Allergies Allergy Verified 12/09/19 22:50 Review of Systems ROS Statement: Those systems with pertinent positive or pertinent negative responses have been documented in the HPI. ROS Other: All systems not noted in ROS Statement are negative. Past Medical History Past Medical History: Seizure Disorder Additional Past Medical History / Comment(s): DVT, PE History of Any Multi-Drug Resistant Organisms: None Reported Past Surgical History: No Surgical Hx Reported Past Psychological History: No Psychological Hx Reported Past Alcohol Use History: Rare Past Drug Use History: None Reported - Past Family History Father Family Medical History: Coronary Artery Disease (CAD), Diabetes Mellitus Mother Additional Family Medical History / Comment(s): hypothyroid General Exam Limitations: physical limitation General appearance: lethargic, obtunded, in distress Head exam: Present: normocephalic, normal inspection. Absent: atraumatic (Mild erythema around neck area) Eye exam: Present: other (Patient does have pinpoint pupils on exam). Absent: scleral icterus, conjunctival injection, periorbital swelling ENT exam: Present: normal exam, mucous membranes moist Neck exam: Present: normal inspection. Absent: tenderness, meningismus, lymphadenopathy Respiratory exam: Present: other (Patient was apneic on arrival) Cardiovascular Exam: Present: regular rate, normal rhythm, normal heart sounds. Absent: systolic murmur, diastolic murmur, rubs, gallop, clicks GI/Abdominal exam: Present: soft, normal bowel sounds. Absent: distended, tenderness, guarding, rebound, rigid Extremities exam: Present: normal inspection, full ROM, normal capillary refill. Absent: tenderness, pedal edema, joint swelling, calf tenderness Back exam: Present: normal inspection Neurological exam: Present: altered Psychiatric exam: Present: depressed Skin exam: Present: warm, dry, intact, normal color. Absent: rash Course Vital Signs 12/09/19 21:14 Temperature 98.2 F Pulse Rate 82 Respiratory 8 L Rate Blood Pressure 124/79 O2 Sat by Pulse 98 Oximetry - Reevaluation(s) Reevaluation #1: 12/09/19 22:53 Medical record is reviewed Reevaluation #2: 12/09/19 22:53 Patient responded initially to Narcan then took her recurrent dose of Narcan here in the ER, currently awake and talking - Consultations Consultation #1: Spoke with Dr. Arteaga who agrees to admit this patient Consultation #2: Spoke with Dr. Hanna for ICU admission Medical Decision Making - Medical Decision Making 34 male of overdose, patient comes in for multiple drug overdose with suicide attempt suicide attempt by hanging occurred tonight. No triadic injury or sick patient shoulder with suicide attempt. Patient did respond well to Narcan with the opiates and is still mildly intoxicated with alcohol. Patient be admitted ICU for close monitoring - Lab Data Result diagrams: 12/09/19 21:24 12/09/19 21:24 Lab Results 12/09/19 12/09/19 12/09/19 Range/Units 21:11 21:24 21:24 WBC 10.8 H (3.8-10.6) k/uL RBC 5.40 (4.30-5.90) m/uL Hgb 16.7 (13.0-17.5) gm/dL Hct 50.0 (39.0-53.0) % MCV 92.6 (80.0-100.0) fL MCH 31.0 (25.0-35.0) pg MCHC 33.4 (31.0-37.0) g/dL RDW 12.0 (11.5-15.5) % Plt Count 210 (150-450) k/uL Neutrophils % 75 % Lymphocytes % 17 % Monocytes % 5 % Eosinophils % 2 % Basophils % 1 % Neutrophils # 8.1 H (1.3-7.7) k/uL Lymphocytes # 1.8 (1.0-4.8) k/uL Monocytes # 0.5 (0-1.0) k/uL Eosinophils # 0.2 (0-0.7) k/uL Basophils # 0.1 (0-0.2) k/uL PT 10.7 (9.0-12.0) sec INR 1.0 (<1.2) APTT 25.7 (22.0-30.0) sec Sodium (137-145) mmol/L Potassium (3.5-5.1) mmol/L Chloride (98-107) mmol/L Carbon Dioxide (22-30) mmol/L Anion Gap mmol/L BUN (9-20) mg/dL Creatinine (0.66-1.25) mg/dL Est GFR (CKD-EPI)AfAm (>60 ml/min/1.73 sqM) Est GFR (CKD-EPI)NonAf (>60 ml/min/1.73 sqM) Glucose (74-99) mg/dL POC Glucose (mg/dL) 95 (75-99) mg/dL POC Glu [employer] ID Beatrice Khan Calcium (8.4-10.2) mg/dL Total Bilirubin (0.2-1.3) mg/dL AST (17-59) U/L ALT (4-49) U/L Alkaline Phosphatase (38-126) U/L Creatine Kinase (55-170) U/L Troponin I (0.000-0.034) ng/mL Total Protein (6.3-8.2) g/dL Albumin (3.5-5.0) g/dL Salicylates mg/dL Acetaminophen ug/mL Serum Alcohol mg/dL Blood Type Blood Type Recheck Bld Type Recheck Status Antibody Screen Spec Expiration Date 12/09/19 12/09/19 12/09/19 Range/Units 21:24 21:24 21:25 WBC (3.8-10.6) k/uL RBC (4.30-5.90) m/uL Hgb (13.0-17.5) gm/dL Hct (39.0-53.0) % MCV (80.0-100.0) fL MCH (25.0-35.0) pg MCHC (31.0-37.0) g/dL RDW (11.5-15.5) % Plt Count (150-450) k/uL Neutrophils % % Lymphocytes % % Monocytes % % Eosinophils % % Basophils % % Neutrophils # (1.3-7.7) k/uL Lymphocytes # (1.0-4.8) k/uL Monocytes # (0-1.0) k/uL Eosinophils # (0-0.7) k/uL Basophils # (0-0.2) k/uL PT (9.0-12.0) sec INR (<1.2) APTT (22.0-30.0) sec Sodium 141 (137-145) mmol/L Potassium 4.6 (3.5-5.1) mmol/L Chloride 108 H (98-107) mmol/L Carbon Dioxide 21 L (22-30) mmol/L Anion Gap 12 mmol/L BUN 13 (9-20) mg/dL Creatinine 0.93 (0.66-1.25) mg/dL Est GFR (CKD-EPI)AfAm >90 (>60 ml/min/1.73 sqM) Est GFR (CKD-EPI)NonAf >90 (>60 ml/min/1.73 sqM) Glucose 101 H (74-99) mg/dL POC Glucose (mg/dL) (75-99) mg/dL POC Glu [employer] ID Calcium 9.3 (8.4-10.2) mg/dL Total Bilirubin 1.0 (0.2-1.3) mg/dL AST 43 (17-59) U/L ALT 23 (4-49) U/L Alkaline Phosphatase 71 (38-126) U/L Creatine Kinase 186 H (55-170) U/L Troponin I <0.012 (0.000-0.034) ng/mL Total Protein 7.8 (6.3-8.2) g/dL Albumin 4.6 (3.5-5.0) g/dL Salicylates <1.0 mg/dL Acetaminophen <10.0 ug/mL Serum Alcohol 156 mg/dL Blood Type B Positive Blood Type Recheck No Previous Record Bld Type Recheck Status CABO Indicated Antibody Screen NEGATIVE Spec Expiration Date 12/12/20196 - EKG Data -: EKG Interpreted by Me (EKG shows sinus rhythm rate of 93 DC 144 QRS 82 QTC 4:30) - Radiology Data Radiology results: report reviewed (CT brain C-spine CTA had neck is negative for significant disease, chest x-rays negative for traumatic injury), image reviewed Critical Care Time Critical Care Time: Yes Total Critical Care Time: 65 Disposition Clinical Impression: Opioid overdose, Suicide attempt, Suicidal ideation, Depression, Suicide attempt by hanging, Alcohol intoxication Disposition: ADMITTED IP TO THIS HOSP Condition: Serious Is patient prescribed a controlled substance at d/c from ED?: No Referrals: Esteban Huagn DO [Primary Care Provider] - 1-2 days
[2019-12-09] MEDS ORDERED: SODIUM CHLORIDE 0.9% IV STA ×2 (21:22)
[2019-12-09] MEDS ORDERED: NALOXONE IV STA ×2 (21:22)
[2019-12-09] MEDS: NALOXONE (MDV) 2 MG in SODIUM CHLORIDE 0.9% 250 ML IV SCH (21:35)
[2019-12-09 21:36] LABS: Basophils # (A) 0.1 k/uL (0-0.2); Basophils % (A) 1 %; Eosinophils # (A) 0.2 k/uL (0-0.7); Eosinophils % (A) 2 %; HGB 16.7 gm/dL (13.0-17.5); Lymphocytes # (A) 1.8 k/uL (1.0-4.8); Lymphocytes % (A) 17 %; MCHC 33.4 g/dL (31.0-37.0); MCV 92.6 fL (80.0-100.0); Monocytes # (A) 0.5 k/uL (0-1.0); Monocytes % (A) 5 %; Neutrophils # (A) 8.1 k/uL (1.3-7.7); Neutrophils % (A) 75 %; Platelet Count 210 k/uL (150-450); WBC 10.8 k/uL (3.8-10.6)
[2019-12-09 21:45] LABS: ALT 23 U/L (4-49); AST 43 U/L (17-59); Acetaminophen <10.0 ug/mL; African American GFR (CKD) >90 (>60 ml/min/1.73 sqM); Albumin 4.6 g/dL (3.5-5.0); Alkaline Phosphatase 71 U/L (38-126); Anion Gap 12 mmol/L; Blood Urea Nitrogen 13 mg/dL (9-20); Calcium 9.3 mg/dL (8.4-10.2); Carbon Dioxide 21 mmol/L (22-30); Chloride 108 mmol/L (98-107); Creatine Kinase 186 U/L (55-170); Glucose 101 mg/dL (74-99); Non-African American GFR(CKD) >90 (>60 ml/min/1.73 sqM); Potassium 4.6 mmol/L (3.5-5.1); Salicylate <1.0 mg/dL; Sodium 141 mmol/L (137-145); Total Protein 7.8 g/dL (6.3-8.2)
[2019-12-09 21:52] LABS: Alcohol 156 mg/dL
--- NOTE | 2019-12-09 22:02 | XR ---
EXAMINATION TYPE: XR chest 1V portable DATE OF EXAM: 12/09/2019 COMPARISON: 08/25/2009 HISTORY: Unresponsive TECHNIQUE: Single view FINDINGS: Heart and mediastinum are normal. Lungs are clear of infiltrate. Bony thorax is intact. The re are chest leads. IMPRESSION: No active cardiopulmonary disease. No change.
--- NOTE | 2019-12-09 22:09 | CT ---
EXAMINATION TYPE: CT brain lucy wo con DATE OF EXAM: 12/09/2019 COMPARISON: None HISTORY: trauma, attempted suicide CT DLP: 1586.6 mGycm Automated exposure control for dose reduction was used. Ventricles and sulci appear normal. There is no mass effect nor midline shift. There is no sign of in tracranial hemorrhage. The calvarium is intact. There is no evidence of cerebral edema. Cervical vertebra have normal alignment. Disc spaces are normal. Posterior elements are intact. Facet joints are normal. Temporal bones appear normal. Occipital bone is normal. Skull base is normal. IMPRESSION: Normal cervical spine. New Normal CT scan of the brain.
[2019-12-09 22:17] LABS: Partial Thromboplastin Time 25.7 sec (22.0-30.0); Prothrombin Time 10.7 sec (9.0-12.0)
--- NOTE | 2019-12-09 22:40 | CT ---
EXAMINATION TYPE: CT angio head neck DATE OF EXAM: 12/09/2019 COMPARISON: None HISTORY: trauma, attempted suicide CT DLP: 680.4 mGycm Automated exposure control for dose reduction was used. CONTRAST: Performed with IV Contrast, patient injected with 65cc mL of Isovue 370. There are 3-D post processed images. There is normal branching pattern of the great vessels on the aortic arch. There is bilateral arteria l flow in the subclavian arteries. There is arterial flow in the common internal and external carotid arteries bilaterally. There is arterial flow in both vertebral arteries. There is no evidence of car otid or vertebral artery aneurysm or dissection. There is no evidence of stenosis. Arteries of the ne ck are widely patent. There is arterial flow in the vertebrobasilar artery system. There is normal contrast opacification o f the anterior middle and posterior cerebral arteries. There is no sign of intracranial aneurysm or n eovascularity. There is no mass effect. There is normal contrast opacification of the venous sinuses. There is no evidence of intracranial arterial stenosis. IMPRESSION: Normal CT angiogram of the neck. Normal CT angiogram of the brain.
[2019-12-09] MEDS ORDERED: NALOXONE 0.4 MG/ML 1 ML VIAL IV PRN (22:41)
[2019-12-09] MEDS ORDERED: SODIUM CHLORIDE 0.9% 1,000 ML IV SCH (22:45)
[2019-12-10 00:46] LABS: Appearance,Urine Clear (Clear); Bilirubin,Urine Negative (Negative); Blood,Urine Negative (Negative); Color,Urine Yellow; Glucose,Urine (UA) Negative (Negative); Ketones,Urine 1+ (Negative); Leukocyte Esterase,Urine Negative (Negative); Nitrite,Urine Negative (Negative); Protein,Urine Negative (Negative); Urobilinogen,Urine <2.0 mg/dL (<2.0)
[2019-12-10 00:47] LABS: Amphetamine Screen,Urine Not Detected (NotDetected); Cocaine Screen,Urine Not Detected (NotDetected); Opiate Screen,Urine Not Detected (NotDetected); Phencyclidine Screen,Urine Not Detected (NotDetected); Urn Cannabinoid Scrn Detected (NotDetected)
[2019-12-10 00:48] LABS: Barbiturate Screen,Urine Not Detected (NotDetected); Benzodiazepines Screen,Urine Not Detected (NotDetected); Methadone Screen, Urine Not Detected (NotDetected); Oxycodone Screen, Urine Not Detected (NotDetected); Tricyclic Antidepressant,Urine Not Detected (NotDetected)
[2019-12-10 00:49] LABS: Specific Gravity,Urine >1.050 (1.001-1.035)
[2019-12-10 01:15] LABS: Glucose,Whole Blood 103 mg/dL (75-99)
[2019-12-10 05:06] LABS: Basophils # (A) 0.1 k/uL (0-0.2); Basophils % (A) 1 %; Eosinophils # (A) 0.1 k/uL (0-0.7); Eosinophils % (A) 1 %; HCT 46.3 % (39.0-53.0); HGB 15.2 gm/dL (13.0-17.5); Lymphocytes # (A) 2.1 k/uL (1.0-4.8); Lymphocytes % (A) 19 %; MCH 31.2 pg (25.0-35.0); MCHC 32.9 g/dL (31.0-37.0); Monocytes # (A) 0.6 k/uL (0-1.0); Monocytes % (A) 5 %; Neutrophils # (A) 8.5 k/uL (1.3-7.7); Neutrophils % (A) 73 %; Platelet Count 193 k/uL (150-450); RBC 4.87 m/uL (4.30-5.90); RDW 12.2 % (11.5-15.5); WBC 11.6 k/uL (3.8-10.6)
[2019-12-10 05:19] LABS: ALT 20 U/L (4-49); AST 22 U/L (17-59); African American GFR (CKD) >90 (>60 ml/min/1.73 sqM); Albumin 3.9 g/dL (3.5-5.0); Alkaline Phosphatase 59 U/L (38-126); Anion Gap 8 mmol/L; Blood Urea Nitrogen 10 mg/dL (9-20); Calcium 8.5 mg/dL (8.4-10.2); Carbon Dioxide 25 mmol/L (22-30); Chloride 108 mmol/L (98-107); Glucose 92 mg/dL (74-99); Magnesium 2.2 mg/dL (1.6-2.3); Non-African American GFR(CKD) >90 (>60 ml/min/1.73 sqM); Phosphorus 4.1 mg/dL (2.5-4.5); Sodium 141 mmol/L (137-145); Total Bilirubin 0.6 mg/dL (0.2-1.3); Total Protein 6.4 g/dL (6.3-8.2)
[2019-12-10] MEDS: NALOXONE (MDV) 2 MG in SODIUM CHLORIDE 0.9% 250 ML IV SCH (06:25)
--- NOTE | 2019-12-10 08:02 | P.GSHP ---
History of Present Illness H&P Date: 12/10/19 Chief Complaint: Attempted hanging 34-year-old male presents to Hospital after attempted hanging. Patient unable to provide any significant history as to the duration of the attempt. Patient was unsure about loss of consciousness however per ER was found unresponsive on arrival to the emergency department and stopped breathing. Patient apparently also attempted drug overdose with this suicide attempt. Denies pain currently. He remains in the ICU. He has received multiple doses of Narcan overnight. Denies headache. No visual disturbances. No trouble breathing. No change in voice. No dysphagia. Tolerating diet currently. Psychiatric consult pending. - Review of Systems Comment: The patient denies any acute changes in vision or hearing, no dysphagia or odynophagia, no chest pain or shortness of breath, no dysuria or hematuria, no headache, no runny nose, no rectal bleeding or melena, no unexplained weight loss Past Medical History Past Medical History: Seizure Disorder Additional Past Medical History / Comment(s): DVT, PE History of Any Multi-Drug Resistant Organisms: None Reported Past Surgical History: Appendectomy Past Anesthesia/Blood Transfusion Reactions: No Reported Reaction Past Psychological History: No Psychological Hx Reported Smoking Status: Current every day smoker Past Alcohol Use History: Rare Past Drug Use History: None Reported - Past Family History Father Family Medical History: Coronary Artery Disease (CAD), Diabetes Mellitus Mother Additional Family Medical History / Comment(s): hypothyroid Medications and Allergies Home Medications Medication Instructions Recorded Confirmed Type levETIRAcetam [Keppra] 500 mg PO BID 10/31/15 12/09/19 History Allergies Allergy/AdvReac Type Severity Reaction Status Date / Time No Known Allergies Allergy Verified 12/09/19 22:50 Surgical - Exam Vital Signs Resp 6 L 12/09/19 21:08 Physical exam: General: Well-developed, well-nourished HEENT: Normocephalic, sclerae nonicteric, minimal tenderness around neck, no ecchymosis or abrasions appreciated Abdomen: Nontender, nondistended Extremities: No edema Neuro: Alert and oriented Results - Labs 12/10/19 04:27 12/10/19 04:27 Abnormal Lab Results - Last 24 Hours (Table) 12/09/19 12/09/19 12/10/19 Range/Units 21:24 21:24 00:20 WBC 10.8 H (3.8-10.6) k/uL Neutrophils # 8.1 H (1.3-7.7) k/uL Chloride 108 H (98-107) mmol/L Carbon Dioxide 21 L (22-30) mmol/L Glucose 101 H (74-99) mg/dL POC Glucose (mg/dL) (75-99) mg/dL Creatine Kinase 186 H (55-170) U/L Ur Specific [place] >1.050 H (1.001-1.035) Urine Ketones 1+ H (Negative) U Marijuana (THC) Screen Detected H (NotDetected) 12/10/19 12/10/19 12/10/19 Range/Units 01:13 04:27 04:27 WBC 11.6 H (3.8-10.6) k/uL Neutrophils # 8.5 H (1.3-7.7) k/uL Chloride 108 H (98-107) mmol/L Carbon Dioxide (22-30) mmol/L Glucose (74-99) mg/dL POC Glucose (mg/dL) 103 H (75-99) mg/dL Creatine Kinase (55-170) U/L Ur Specific [place] (1.001-1.035) Urine Ketones (Negative) U Marijuana (THC) Screen (NotDetected) Diabetes panel 12/09/19 12/10/19 Range/Units 21:24 04:27 Sodium 141 141 (137-145) mmol/L Potassium 4.6 4.0 (3.5-5.1) mmol/L Chloride 108 H 108 H (98-107) mmol/L Carbon Dioxide 21 L 25 (22-30) mmol/L BUN 13 10 (9-20) mg/dL Creatinine 0.93 0.85 (0.66-1.25) mg/dL Glucose 101 H 92 (74-99) mg/dL Calcium 9.3 8.5 (8.4-10.2) mg/dL AST 43 22 (17-59) U/L ALT 23 20 (4-49) U/L Alkaline Phosphatase 71 59 (38-126) U/L Total Protein 7.8 6.4 (6.3-8.2) g/dL Albumin 4.6 3.9 (3.5-5.0) g/dL Calcium panel 12/09/19 12/10/19 Range/Units 21:24 04:27 Calcium 9.3 8.5 (8.4-10.2) mg/dL Phosphorus 4.1 (2.5-4.5) mg/dL Albumin 4.6 3.9 (3.5-5.0) g/dL Pituitary panel 12/09/19 12/10/19 Range/Units 21:24 04:27 Sodium 141 141 (137-145) mmol/L Potassium 4.6 4.0 (3.5-5.1) mmol/L Chloride 108 H 108 H (98-107) mmol/L Carbon Dioxide 21 L 25 (22-30) mmol/L BUN 13 10 (9-20) mg/dL Creatinine 0.93 0.85 (0.66-1.25) mg/dL Glucose 101 H 92 (74-99) mg/dL Calcium 9.3 8.5 (8.4-10.2) mg/dL Adrenal panel 12/09/19 12/10/19 Range/Units 21:24 04:27 Sodium 141 141 (137-145) mmol/L Potassium 4.6 4.0 (3.5-5.1) mmol/L Chloride 108 H 108 H (98-107) mmol/L Carbon Dioxide 21 L 25 (22-30) mmol/L BUN 13 10 (9-20) mg/dL Creatinine 0.93 0.85 (0.66-1.25) mg/dL Glucose 101 H 92 (74-99) mg/dL Calcium 9.3 8.5 (8.4-10.2) mg/dL Total Bilirubin 1.0 0.6 (0.2-1.3) mg/dL AST 43 22 (17-59) U/L ALT 23 20 (4-49) U/L Alkaline Phosphatase 71 59 (38-126) U/L Total Protein 7.8 6.4 (6.3-8.2) g/dL Albumin 4.6 3.9 (3.5-5.0) g/dL Assessment and Plan (1) Suicide attempt by hanging Narrative/Plan: 34-year-old male who attempted suicide by hanging. Admitted to the trauma service since he came in as a priority to trauma. Patient was actually seen earlier this morning within the 8 hour window. Await evaluation by hospitalist, photostat operator helper, psychiatry. Cleared from my point of view to be transferred to the psychiatric callaway. Current Visit: Yes Status: Acute Code(s): T71.162A - ASPHYXIATION DUE TO HANGING, INTENTIONAL SELF-HARM, INIT SNOMED Code(s): 591096312
[2019-12-10] MEDS ORDERED: levETIRAcetam 500 MG TAB PO SCH (10:15)
--- NOTE | 2019-12-10 14:04 | CONS ---
CONSULTATION PULMONARY/CRITICAL CARE PROGRESS NOTE: DATE OF SERVICE: December 10, 2019. REASON FOR CONSULTATION: Attempted suicide and drug overdose. HISTORY OF PRESENT ILLNESS: This is a 34-year-old male who apparently has a history of seizure disorder and also possibly history of a DVT and pulmonary embolism. Anyway, the patient apparently was despondent and attempted suicide by excessive alcohol intake and possible opioid overdose. The patient's drug screen was positive for alcohol with an alcohol level of 156 and THC was positive in testing. Opiates were negative. The patient apparently has never attempted suicide in the past. He attempted hanging himself with his belt. The patient was evaluated in the emergency room by Dr. Zimmer. He called me on the phone. He thought the patient should be better observed in the ICU. I agreed. His x- rays including CT scan of the brain, neck, and CT angio were all negative. He is currently not receiving any supplemental oxygen. His IV is 0.9 at KVO. He has yet to see Psychiatry. He does have a history of seizure disorder, DVT and pulmonary embolism. Dr. Zimmer mentioned to me that he thought the patient was either taking narcotics and/or heroin. He apparently received a couple doses of Narcan and seemed to improve, but his drug screen was negative for opiates and narcotics. Currently, he is awake and alert. HOME MEDICATIONS: Include only Keppra. ALLERGIES: Denied. MEDICAL HISTORY: Seizure disorder, DVT, pulmonary embolism. SOCIAL HISTORY: Positive for chronic tobacco use, alcohol use, and marijuana use. FAMILY HISTORY: Positive for father with CAD and diabetes. Apparently his father last year. Mother has a history of hypothyroidism. REVIEW OF SYSTEMS: CONSTITUTIONAL negative. NEUROLOGIC depression. HEENT negative. CARDIOVASCULAR negative. PULMONARY negative. GI negative. negative. RHEUMATOLOGIC negative. IMMUNOLOGIC negative. ENDOCRINOLOGIC negative. DERMATOLOGIC negative. PHYSICAL EXAMINATION: VITAL SIGNS: Current vital signs are reviewed. Temperature is 98.1. Heart rate 64, respiratory rate 12, blood pressure 111/68, mean 82. Saturations 95% on room air. GENERAL: Appears in no acute distress. HEENT: Examination is grossly unremarkable. NECK: Supple. Full range of motion. No adenopathy. Neck veins are flat. CARDIOVASCULAR: Examination reveals regular rhythm and rate. S1, S2 normal. No S3, S4, or murmur. LUNGS: Reveal clear breath sounds. No wheezes, rhonchi, or crackles. ABDOMEN: Soft. Extremities are intact. No cyanosis, clubbing, or edema. SKIN is without rash. NEUROLOGIC: Examination is brief but nonfocal. LABS: Reviewed. White count 11.6, hemoglobin, hematocrit and platelet count all normal. PT/INR, PTT normal. Sodium 140, potassium 4, chloride 108, CO2 25, anion gap is 8. BUN and creatinine were 10 and 0.85. The rest of the comprehensive metabolic profile was negative. The urine was negative. Drug screen was negative for salicylates and Tylenol. Serum alcohol level is 156. THC was positive. Chest x-ray was interpreted as normal. Head CT and cervical spine CT were both negative. Angiography CT was also negative. ASSESSMENT: 1. Attempted suicide by hanging, without cervical injury. 2. History of polysubstance abuse including both alcohol and marijuana. 3. History of seizure disorder. 4. History of deep venous thrombosis. 5. History of PTE. 6. Probable depression. PLAN: Psychiatry has yet to see the patient. Will allow them to see the patient. After that, we will get a better disposition on the patient. The patient will either go to Psychiatry psychiatric unit and/or general medical floor with sitter. Additional recommendations and suggestions forthcoming. Hemodynamic status and respiratory status are both stable. MMODL / IJN: [id number] / [email or web address]
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
[2019-12-10 18:38] VITALS: BP 124/62; PULSE 64; RESP 20; TEMP 98.2
[2019-12-10] MEDS ORDERED: MAGNESIUM HYDROXIDE 2,400 MG/10 ML CUP PO PRN (18:58)
[2019-12-10] MEDS ORDERED: MAG HYDROX/AL HYDROX/SIMETH 30 ML CUP PO PRN (18:58)
[2019-12-10] MEDS ORDERED: LORazepam 1 MG TAB PO PRN (18:58)
[2019-12-10] MEDS ORDERED: ZIPRASIDONE 20 MG VIAL IM PRN (18:58)
[2019-12-10] MEDS ORDERED: ACETAMINOPHEN TAB 325 MG TAB PO PRN (18:58)
--- NOTE | 2019-12-13 21:50 | P.CONS ---
History of Present Illness - Reason for Consult Consult date: 12/10/19 medical management - Chief Complaint suicidal attempt - History of Present Illness 34-year-old male DF for evaluation patient coming in for multifactorial suicide attempt alcohol intoxication opiate abuse and opiate use as well as a hanging attempt. Patient attempted hanging just prior to arrival. Was found by family called EMS EMS brings patient in and upon arrival to the ER patient became un responsive and stopped breathing. Patient was unresponsive on arrival to emergency department history obtained by EMS Past Medical History Past Medical History: Seizure Disorder Additional Past Medical History / Comment(s): DVT, PE History of Any Multi-Drug Resistant Organisms: None Reported Past Surgical History: Appendectomy Past Anesthesia/Blood Transfusion Reactions: No Reported Reaction Past Psychological History: No Psychological Hx Reported Smoking Status: Current every day smoker Past Alcohol Use History: Rare Past Drug Use History: None Reported - Past Family History Father Family Medical History: Coronary Artery Disease (CAD), Diabetes Mellitus Mother Additional Family Medical History / Comment(s): hypothyroid Medications and Allergies Home Medications Medication Instructions Recorded Confirmed Type levETIRAcetam [Keppra] 500 mg PO BID 10/31/15 12/10/19 History Allergies Allergy/AdvReac Type Severity Reaction Status Date / Time No Known Allergies Allergy Verified 12/09/19 22:50 Physical Exam Vitals: Vital Signs Temp Pulse Pulse Resp BP BP Pulse Ox 12/10/19 13:00 55 L 117/77 95 12/10/19 11:00 53 L 10 L 118/75 96 12/10/19 10:00 67 16 118/75 98 12/10/19 09:00 66 16 116/74 98 12/10/19 08:00 98 F 70 18 122/76 98 12/10/19 07:00 64 12 111/68 95 12/10/19 06:00 70 12 104/61 95 12/10/19 05:00 65 10 L 103/65 96 12/10/19 04:00 98.1 F 70 10 L 108/58 95 12/10/19 03:00 68 17 105/65 93 L 12/10/19 02:00 68 12 113/70 97 12/10/19 01:14 98.4 F 70 11 L 108/66 96 12/10/19 00:26 98.2 F 85 16 116/71 98 12/09/19 23:00 77 16 109/59 100 12/09/19 21:24 8 L 12/09/19 21:14 98.2 F 82 8 L 124/79 98 12/09/19 21:11 8 L 12/09/19 21:08 6 L Intake and Output 12/09/19 12/10/19 12/10/19 22:59 06:59 14:59 Intake Total 240 140 Balance 240 140 Intake: IV 140 140 Sodium Chloride 0.9% 1, 140 140 000 ml @ 20 mls/hr IV . Q24H [facility] Rx#:[id number] Oral 100 Other: Voiding Method Urinal Urinal Weight 84.504 kg 86.2 kg General appearance: lethargic, obtunded, in distress Head exam: Present: normocephalic, normal inspection. Absent: atraumatic (Mild erythema around neck area) Eye exam: Present: other (Patient does have pinpoint pupils on exam). Absent: scleral icterus, conjunctival injection, periorbital swelling ENT exam: Present: normal exam, mucous membranes moist Neck exam: Present: normal inspection. Absent: tenderness, meningismus, lymphadenopathy Respiratory exam: Present: other (Patient was apneic on arrival) Cardiovascular Exam: Present: regular rate, normal rhythm, normal heart sounds. Absent: systolic murmur, diastolic murmur, rubs, gallop, clicks GI/Abdominal exam: Present: soft, normal bowel sounds. Absent: distended, tenderness, guarding, rebound, rigid Extremities exam: Present: normal inspection, full ROM, normal capillary refill. Absent: tenderness, pedal edema, joint swelling, calf tenderness Back exam: Present: normal inspection Neurological exam: Present: altered Psychiatric exam: Present: depressed Skin exam: Present: warm, dry, intact, normal color. Absent: rash Results CBC & Chem 7: 12/10/19 04:27 12/10/19 04:27 Labs: Abnormal Lab Results - Last 24 Hours (Table) 12/09/19 12/09/19 12/10/19 Range/Units 21:24 21:24 00:20 WBC 10.8 H (3.8-10.6) k/uL Neutrophils # 8.1 H (1.3-7.7) k/uL Chloride 108 H (98-107) mmol/L Carbon Dioxide 21 L (22-30) mmol/L Glucose 101 H (74-99) mg/dL POC Glucose (mg/dL) (75-99) mg/dL Creatine Kinase 186 H (55-170) U/L Ur Specific Vendor >1.050 H (1.001-1.035) Urine Ketones 1+ H (Negative) U Marijuana (THC) Screen Detected H (NotDetected) 12/10/19 12/10/19 12/10/19 Range/Units 01:13 04:27 04:27 WBC 11.6 H (3.8-10.6) k/uL Neutrophils # 8.5 H (1.3-7.7) k/uL Chloride 108 H (98-107) mmol/L Carbon Dioxide (22-30) mmol/L Glucose (74-99) mg/dL POC Glucose (mg/dL) 103 H (75-99) mg/dL Creatine Kinase (55-170) U/L Ur Specific Vendor (1.001-1.035) Urine Ketones (Negative) U Marijuana (THC) Screen (NotDetected) Assessment and Plan Assessment: 1. Suicidal Attempt; patient to be admitted to [facility] once medically stable 2. ETOH abuse; counseling done; CONTINUUM OF CARE MANAGER on board 3. Drug/ Substance abuse 4. Trauma due to hanging; Trauma team following 5. Seizure disorder; continue with home dose of Keppra DVT Ppx CODE STATUS; FULL CODE
== END 2019-12-10 19:40 | DRG 922 ==
LOC: EC 21:06 → 2SICU 22:43
PROVIDERS: ADMIT Surgery; ATTEND Surgery
DX: T71.162A Asphyxiation due to hanging, intentional self-harm, initial encounter (principal); R40.2112 Coma scale, eyes open, never, at arrival to emergency department; R40.2212 Coma scale, best verbal response, none, at arrival to emergency department; G40.909 Epilepsy, unspecified, not intractable, without status epilepticus; F17.200 Nicotine dependence, unspecified, uncomplicated; R40.2352 Coma scale, best motor response, localizes pain, at arrival to emergency department; F43.21 Adjustment disorder with depressed mood; F10.129 Alcohol abuse with intoxication, unspecified; F12.90 Cannabis use, unspecified, uncomplicated; Z86.711 Personal history of pulmonary embolism; Z86.718 Personal history of other venous thrombosis and embolism; Z83.3 Family history of diabetes mellitus; Z82.49 Family history of ischemic heart disease and other diseases of the circulatory system; Z83.49 Family history of other endocrine, nutritional and metabolic diseases; Z79.899 Other long term (current) drug therapy
CPT/HCPCS: 36415; 70450; 70496; 70498; 71045; 72125; 80053; 80306; 80320; 80329; 81003; 82550; 83520; 83735; 84100; 84484; 85025; 85610; 85730; 86850; 86900; 86901; 93005; 96361; 96374; 99291

== ENCOUNTER 2019-12-10 18:44 | Inpatient (IN) | payer BC ==
[2019-12-10] MEDS ORDERED: ZIPRASIDONE 20 MG VIAL IM PRN (20:48)
[2019-12-10] MEDS ORDERED: MAG HYDROX/AL HYDROX/SIMETH 30 ML CUP PO PRN (20:48)
[2019-12-10] MEDS ORDERED: MAGNESIUM HYDROXIDE 2,400 MG/10 ML CUP PO PRN (20:48)
[2019-12-10] MEDS ORDERED: ACETAMINOPHEN TAB 325 MG TAB PO PRN (20:48)
[2019-12-10] MEDS ORDERED: LORazepam 1 MG TAB PO PRN (20:48)
[2019-12-10] MEDS ORDERED: LORazepam 2 MG/ML INJ IM PRN (20:52)
[2019-12-10] MEDS: levETIRAcetam 500 MG TAB PO SCH (20:58)
[2019-12-11] MEDS: levETIRAcetam 500 MG TAB PO SCH ×2 (09:07→20:46)
[2019-12-11 13:29] LABS: Hemoglobin A1C 5.4 % (4.0-6.0)
--- NOTE | 2019-12-11 17:58 | CONS ---
CONSULTATION REASON FOR CONSULTATION: Regarding seizure and other medical issues, requested by Psychiatry. HISTORY OF PRESENT ILLNESS: This 34-year-old gentleman with a past medical history of seizure disorder, DVT, pulmonary embolism, fractured left foot, history of nicotine dependence, being followed by Dr. Huang in the outpatient setting was admitted for psychiatric evaluation. The patient attempted suicide by hanging and overdose alcohol intoxication. The patient improved significantly. The patient transferred to psych floor at this time. There is no history of fever, rigors or chills. No history of headache, loss of consciousness, seizures at this time. The patient apparently has seizure disorder and taking the medication. Patient has an appointment to see the neurologist for evaluation of the continuation of seizure medication according to him. PAST MEDICAL HISTORY: History of seizure disorder, DVT, pulmonary embolism, history of suicide attempts, history of nicotine dependence. MEDICATIONS: Keppra 500 mg p.o. b.i.d. ALLERGIES: None. FAMILY HISTORY: Family history of diabetes, hypothyroidism, coronary artery disease. SOCIAL HISTORY: History of THC, history of smoking. REVIEW OF SYSTEMS: ENT: As mentioned earlier. CARDIOVASCULAR: No angina. RESPIRATION: No cough or hemoptysis. GI: No nausea or vomiting. no dysuria. NERVOUS SYSTEM: No numbness, weakness. Otherwise as mentioned earlier. ALLERGIES/IMMUNOLOGY: No asthma or hayfever. MUSCULOSKELETAL as mentioned earlier. HEMATOLOGY/ONCOLOGY: No history of anemia. ENDOCRINE: No history of diabetes or hypothyroidism. CONSTITUTIONAL: As mentioned earlier. DERMATOLOGY: Negative. RHEUMATOLOGY negative. PSYCHIATRY as mentioned earlier. PHYSICAL EXAMINATION: Alert and oriented times three. Pulse 59, blood pressure 106/59, respirations 16, temperature 97.9, pulse ox 98% on room air. HEENT: Conjunctivae normal. Oral mucosa moist. NECK is no jugular venous distention. No carotid bruit. No lymph node enlargement. CARDIOVASCULAR: S1, S2 muffled. RESPIRATIONS: Breath sounds diminished in the bases. No rhonchi. No crackles. ABDOMEN: Soft, nontender. LEGS are no edema. No swelling. NERVOUS SYSTEM: Higher functions as mentioned. Moves all 4 limbs. Cranial nerves 2 thru 12 grossly intact. No focal motor or sensory deficits. LYMPHATICS: No lymph nodes palpable in the neck, axillae or groin. SKIN: No ulcer. No rash. No bleeding. JOINTS: No active deforming arthropathy. LABS: LDL is 124. Otherwise, recent hemoglobin is 11.6 and chemistry was also noted within normal limits. ASSESSMENT: 1. Status post suicidal attempts by hanging. 2. Possible depression. 3. Increased WBC recently. 4. History of seizure disorder. 5. History of deep vein thrombosis. 6. History of pulmonary embolism. 7. History of fracture 5 years ago, left foot. 8. History of continued ongoing nicotine dependence. 9. FULL CODE. RECOMMENDATIONS AND DISCUSSION: In this 34-year-old gentleman who presented with multiple complex medical issues, we will monitor the patient closely, continue the current medications, management and symptomatic treatment. Otherwise, I would recommend resume the home medications. Continue with Keppra. Seizure precautions. I would also recommend baseline labs to ensure continued normalcy. Otherwise, the patient may be asked to follow with Dr. Huang closely after discharge. Thank you for letting us participate in the care of this patient. MMODL / JEANMARIEN: [id number] /
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
[2019-12-12] MEDS: levETIRAcetam 500 MG TAB PO SCH ×2 (07:44→20:44)
[2019-12-12 09:33] LABS: ALT 20 U/L (4-49); AST 22 U/L (17-59); African American GFR (CKD) >90 (>60 ml/min/1.73 sqM); Albumin 4.3 g/dL (3.5-5.0); Alkaline Phosphatase 66 U/L (38-126); Anion Gap 5 mmol/L; Blood Urea Nitrogen 11 mg/dL (9-20); Calcium 9.3 mg/dL (8.4-10.2); Carbon Dioxide 31 mmol/L (22-30); Chloride 103 mmol/L (98-107); Glucose 122 mg/dL (74-99); Non-African American GFR(CKD) >90 (>60 ml/min/1.73 sqM); Potassium 4.2 mmol/L (3.5-5.1); Sodium 139 mmol/L (137-145); Total Bilirubin 0.9 mg/dL (0.2-1.3); Total Protein 7.1 g/dL (6.3-8.2)
[2019-12-12 09:35] LABS: Basophils % (A) 1 %; Eosinophils % (A) 1 %; HCT 47.2 % (39.0-53.0); HGB 15.5 gm/dL (13.0-17.5); Lymphocytes # (A) 1.3 k/uL (1.0-4.8); Lymphocytes % (A) 15 %; MCV 94.1 fL (80.0-100.0); Mean Platelet Volume 8.4; Monocytes # (A) 0.3 k/uL (0-1.0); Monocytes % (A) 4 %; Neutrophils % (A) 79 %; Platelet Count 186 k/uL (150-450); RBC 5.01 m/uL (4.30-5.90); RDW 12.3 % (11.5-15.5); WBC 8.9 k/uL (3.8-10.6)
--- NOTE | 2019-12-12 10:22 | PN ---
PROGRESS NOTE DATE OF SERVICE: 12/12/2019. CHIEF COMPLAINT: The patient became depressed. He drank excessively and made an attempt to hang himself with a belt. INTERVAL HISTORY: The patient has been doing fair. He had a quiet day yesterday. He attended groups. He has been appropriate and cooperative with care. He comes out in the day area. He interacts a little with others. He tends to keep to himself. He has a quiet manner. He slept fairly well last night. Today, he has been up. He continues the same. His main concern is his belief that the events that brought him into the hospital are past him and that he sees very little reason to have any further mental health intervention. He brought in his petition plus the certification that I completed. He was stressed about the idea that what the petition was based on was at that time when he was intoxicated and as he would say "not in the right mind." He says that now it is behind him. He continues to assert that he has not had problems in the past and feels that his continuing in the hospital is more of a negative than anything else. He did suggest that one possibility might be some counseling around alcohol use. This is in spite of the fact that he had not been reporting any significant problems with alcohol or other abusive substances. He continues to report that he has a strong support network including his girlfriend plus family and work. He still is quite limited in his insight about the idea that if he was functioning so well and that he had such a strong support system why would he get to a point of attempting to hang himself. We discussed that many people may be highly distressed and may drink to intoxication, but it is a very low percentage of people that would go from that to trying to kill themselves through a violent means. He would assert that what he did was not a very serious attempt in that he did not cause himself any harm. He did not have much insight about the idea that even under the circumstances as he describes he may have made a mistake that could have cost his life. He does say he is strongly encouraging staff to set up a family meeting with him and his girlfriend as part of discharge planning. He is very focused on being discharged and getting back to work and other aspects of his life as soon as possible. He continues off psychotropic medications. MENTAL STATUS: Patient sat with some restlessness. He gave fair eye contact. Mostly he was focused on the petition and certification that he was caring. He answered questions with direct responses, though frequently deferred back to the idea of why he should be in the hospital. His affect was intense. His mood somewhat depressed. He was significantly distressed. There was no indication for thought disorder. He voiced no thoughts of harm. Cognition was clear. ASSESSMENT: I will continue the current diagnosis and treatment plan. I had an extensive discussion with the patient regarding the petition process. I discussed options at this point. One option being the possibility that he could be allowed to sign in voluntarily as part of discharge planning to defer the court process. I also discussed the deferral and court hearing process as well. I anticipate that the patient would sign a deferral if things progressed in that direction. I strongly encouraged the patient to work on some discharge planning ideas to present to Dr. Bess and that our main issue at this point is to set up some followup that he would find to be helpful hopefully to help defer any kind of issues that he ran into that led to his hospitalization. I would encourage setting up a family meeting with the patient and his girlfriend as part of discharge planning. We will focus on stabilization and discharge plan. LASHA / JEANMARIEN: [phone] /
[2019-12-13 06:44] VITALS: TEMP 98
[2019-12-13] MEDS: levETIRAcetam 500 MG TAB PO SCH ×2 (09:13→20:46)
--- NOTE | 2019-12-13 10:33 | P.PN ---
Progress Note - Text Progress Note Date: 12/13/19 Interval History: Patient was seen wandering the hallways and was directable and agreeable to speak with board writer in the office. Patient reports that he is doing well. He states that being currently admitted inpatient has given him time to think about his situation. He has been attending groups and participating well. He is not endorsing any significant symptoms of depression today. He vehemently denies any suicidal or homicidal ideation or intention. He denies any plan. He expresses that he will follow up with outpatient treatment and that he will avoid alcohol. He states that his family has been very supportive and that he would be staying with his girlfriend. Patient denies any auditory, visual hallucinations and denies any paranoia or delusions. Mental Status Exam: General Appearance: Patient appears to be stated age is alert, directable, and cooperative. Behavior: Patient is calmly seated without any agitated behavior. Speech: Patient's speech is fluent and nonpressured. Mood/Affect: Mood is improving mildly, affect is congruent and constricted. Suicidality/Homicidality: Patient denies having any suicidal or homicidal ideation intent or plan. Perceptions: Patient denies any visual hallucinations and denies any auditory hallucinations Though content/process: There is no evidence of any delusional thought content and thought process is linear and goal-directed. Memory and concentration: AOX3, grossly intact for the purposes of this session Judgment and insight: Improving mildly Assessment Major depressive disorder Plan: -Patient continues to meet criteria for inpatient psychiatric admission for symptom stabilization and safety. Patient admitted involuntarily. He is expected to defer. -Will obtain collateral information from the patient's support system to ensure safety discharge planning. -Highly recommend outpatient follow-up. -When necessary Rafael and Karrie for agitation/aggression. -SW on board for discharge planning. Encouraged the patient to participate in milieu.
[2019-12-14 06:46] VITALS: BP 108/62; PULSE 64; RESP 16
[2019-12-14] MEDS: levETIRAcetam 500 MG TAB PO SCH (08:39)
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
== END 2019-12-14 12:24 | disposition home or self-care (01) | DRG 881 ==
LOC: 3MHU 20:28
PROVIDERS: ADMIT Psychiatry & Neurology Psychiatry; ATTEND Psychiatry & Neurology Psychiatry
DX: F32.9 Major depressive disorder, single episode, unspecified (principal); G40.909 Epilepsy, unspecified, not intractable, without status epilepticus; T14.91XA Suicide attempt, initial encounter; X83.8XXA Intentional self-harm by other specified means, initial encounter; F10.129 Alcohol abuse with intoxication, unspecified; F41.9 Anxiety disorder, unspecified; F12.90 Cannabis use, unspecified, uncomplicated; F17.200 Nicotine dependence, unspecified, uncomplicated; R45.1 Restlessness and agitation; Y90.6 Blood alcohol level of 120-199 mg/100 ml; Z79.899 Other long term (current) drug therapy; Z91.5 Personal history of self-harm; Z86.711 Personal history of pulmonary embolism; Z86.718 Personal history of other venous thrombosis and embolism; Z87.81 Personal history of (healed) traumatic fracture; Z83.3 Family history of diabetes mellitus; Z82.49 Family history of ischemic heart disease and other diseases of the circulatory system; Z83.49 Family history of other endocrine, nutritional and metabolic diseases
CPT/HCPCS: 80053; 80061; 83036; 84443; 85025

== ENCOUNTER → 2021-06-18 | Outpatient (CLI) | payer OTHER ==
--- NOTE | 2021-06-18 22:08 | CT ---
EXAMINATION TYPE: CT brain wo con DATE OF EXAM: 06/18/2021 COMPARISON: CT dated 12/09/2019 HISTORY: Post concussion syndrome, visual disturbance, tinnitus, bilateral, headache. CT DLP: 1188.10 mGycm Automated exposure control for dose reduction was used. TECHNIQUE: CT scan of the brain is performed without IV contrast administration. FINDINGS: No acute intracranial hemorrhage. No gross acute cortical infarct. No midline shift, herniation or ve ntriculomegaly. Unremarkable [place]-white matter differentiation, basal cisterns, sella and CP angles. No gross space-o ccupying lesion, vasogenic edema or mass effect. Unremarkable orbits. Mild mucosal thickening of the maxillary sinuses and ethmoid air cells. Clear ma stoid air cells. Unremarkable calvarial bones. IMPRESSION: No acute intracranial abnormality or gross space-occupying lesion by this nonenhanced CT scan. Furthe r MRI assessment can be considered if clinically required.
== END | disposition home or self-care (01) ==
LOC: RADCTMAIN 18:53
PROVIDERS: ATTEND Family Medicine
DX: F07.81 Postconcussional syndrome (principal); H53.9 Unspecified visual disturbance; H93.13 Tinnitus, bilateral
CPT/HCPCS: 70450